=== PATIENT | female | born 1960 | race Two or more races ===

== ENCOUNTER → 2017-01-30 | Outpatient (CLI) | payer OTHER ==
--- NOTE | 2017-01-30 16:04 | REP ---
Digital diagnostic bilateral mammography with CAD and focused bilateral breast sonography: History: Multiple palpable nodules in both breasts. In the right breast, the referring provider describes palpable abnormalities at 9 o'clock, 3 o'clock and 6 o'clock. In the left breast, palpable abnormalities are reported at 3 o'clock, 2 o'clock, 3 o'clock and 4 o'clock. The patient reports multiple lumps bilaterally. History of bilateral benign biopsy 2011. Positive family history breast carcinoma in a sister. Mammographic findings: Breast parenchyma is heterogeneously dense in a pattern, which may inhibit the sensitivity of mammography. There are two surgical clips in the upper outer quadrant on the right. No dominant density is seen on either side. No mass lesion, spiculation or microcalcification is observed. CC, MLO, and true MLO views of each breast were obtained. There are scattered microcalcifications bilaterally. No worrisome skin changes seen. Sonographic findings: The right breast is scanned at 6 o'clock, 9 o'clock, and 3 o'clock. Heterogeneous fibroglandular background echotexture is seen. Numerous cysts are noted. The largest cyst at 9 o'clock measures 3 mm in greatest diameter, at 6 o'clock there is a 2 mm cyst and at 3 o'clock there is a 2 mm cyst. The left breast is scanned from 2 o'clock to 4 o'clock. Numerous cysts are seen scattered within heterogeneous fibroglandular background echotexture. At 2 o'clock, there is a 10 mm cyst, 2.5 cm from the nipple. At 3 o'clock there is a 4 mm cyst. No mass or other sonographically suspicious finding is seen on either side. Impression: BIRADS category II benign bilateral breast imaging. This negative report should not dissuade one from biopsy of a palpable lump depending on its clinical characteristics. Clinical follow-up is advised. Annual screening bilateral mammography is recommended. This mammogram was interpreted with the aid of an FDA-approved computer-aided detection system. The patient states she/he had a clinical breast exam in December 2016. The patient letter being requested is m#[id number]. Signed by Cricket Mackenzie MD 01/30/2017 04:48 P
== END ==
LOC: M RAD 10:57
PROVIDERS: ATTEND Physician Assistant Medical
DX: N63 Unspecified lump in breast (principal)

== ENCOUNTER → 2017-01-30 | Outpatient (REF) | payer OTHER ==
[2017-01-30 13:43] LABS: HEPATITIS B SURFACE ANTIBODY NEGATIVE (POSITIVE)
[2017-01-30 13:45] LABS: BASO % 0.6 % (0.0-1.0); EOS # 0.1 K/mm3 (0.0-0.50); EOS % 1.6 % (0.0-3.0); LARGE UNSTAINED CELL # 0.2 K/mm3 (0.0-0.4); LARGE UNSTAINED CELL % 3.1 % (0.0-4.0); LYMPH # 1.3 K/mm3 (1.5-4.5); LYMPH % 14.9 % (24.0-44.0); MEAN CORPUSCULAR HEMOGLOBIN 30.5 pg (27.0-33.0); MEAN CORPUSCULAR HGB CONC 32.9 g/dl (32.0-36.5); MEAN CORPUSCULAR VOLUME 92.5 fl (80.0-96.0); MONO # 0.5 K/mm3 (0.0-0.8); MONO % 6.5 % (0.0-5.0); NEUTROPHILS % 73.3 % (36.0-66.0); PLATELET COUNT, AUTOMATED 291 k/mm3 (150-450); WHITE BLOOD COUNT 6.9 K/mm3 (4.0-10.0)
[2017-01-30 13:46] LABS: ALKALINE PHOSPHATASE 68 U/L (45-117); ALT/SGPT 20 U/L (12-78); ANION GAP 6 MEQ/L (8-16); AST/SGOT 13 U/L (15-37); BILIRUBIN,TOTAL 0.4 MG/DL (0.2-1.0); BLOOD UREA NITROGEN 12 MG/DL (7-18); CARBON DIOXIDE LEVEL 29 MEQ/L (21-32); CHLORIDE LEVEL 102 MEQ/L (98-107); CHOLESTEROL LEVEL 241 MG/DL (<200); CREATININE FOR GFR 0.71 MG/DL (0.55-1.02); GLOMERULAR FILTRATION RATE > 60.0 (>51); GLUCOSE, FASTING 79 MG/DL (70-105); POTASSIUM SERUM 4.4 MEQ/L (3.5-5.1); SODIUM LEVEL 137 MEQ/L (136-145); TRIGLYCERIDES LEVEL 125 MG/DL (<150)
[2017-01-30 13:47] LABS: ALBUMIN/GLOBULIN RATIO 1.25 (1.00-1.93); FREE T4 0.87 NG/DL (0.76-1.46); TOTAL PROTEIN 7.2 GM/DL (6.4-8.2)
[2017-02-01 14:15] LABS: HEPATITIS C QUANTITATION HCV Not Detected IU/mL (.)
== END ==
LOC: M SFHCPLAZ 09:14
PROVIDERS: ATTEND Physician Assistant Medical
DX: G47.00 Insomnia, unspecified (principal); F32.9 Major depressive disorder, single episode, unspecified; Z72.51 High risk heterosexual behavior; Z11.59 Encounter for screening for other viral diseases; Z11.4 Encounter for screening for human immunodeficiency virus [HIV]; Z13.220 Encounter for screening for lipoid disorders

== ENCOUNTER → 2017-03-31 | Outpatient (REF) | payer OTHER ==
[2017-03-31 12:53] LABS: FREE T4 0.99 NG/DL (0.76-1.46)
== END ==
LOC: M SFHCPLAZ 09:16
PROVIDERS: ATTEND Physician Assistant Medical
DX: L65.9 Nonscarring hair loss, unspecified (principal)

== ENCOUNTER → 2017-04-24 | Outpatient (REF) | payer OTHER | LOC: M SFHCPLAZ 14:05 | PROVIDERS: ATTEND Physician Assistant Medical | DX: R53.82 Chronic fatigue, unspecified (principal); L65.9 Nonscarring hair loss, unspecified ==